=== PATIENT | male | born 1975 | race Caucasian/White ===

== ENCOUNTER 2020-01-15 10:00 | Emergency (ER) | payer OTHER ==
[~2020-01-15] VITALS: Ht 180.3 cm; Wt 102.1 kg
--- NOTE | 2020-01-15 10:04 | NUR ---
DR KELLEY AT BEDSIDE FOR EVAL.
[2020-01-15] MEDS ORDERED: KETOROLAC TROMETHAMINE 15 MG/ML VIAL ONE (10:49)
[2020-01-15] MEDS: KETOROLAC TROMETHAMINE INJ 60 MG/2 ML VIAL IM ONE (10:54)
--- NOTE | 2020-01-15 10:54 | NUR ---
OCTAVIO CHONG AT BEDSIDE FOR SPLINT PLACEMENT.
[2020-01-15 11:10] VITALS: BP 150/71
--- NOTE | 2020-01-15 11:10 | NUR ---
Patient discharged to home in stable condition. Written and verbal after care instructions given. Patient verbalizes understanding of instruction.
== END 2020-01-15 11:10 | disposition home or self-care (01) ==
LOC: ER 10:04
DX: S82.831A Other fracture of upper and lower end of right fibula, initial encounter for closed fracture (principal); S99.811A Other specified injuries of right ankle, initial encounter; X50.1XXA Overexertion from prolonged static or awkward postures, initial encounter; Y93.89 Activity, other specified; Y92.89 Other specified places as the place of occurrence of the external cause; Y99.8 Other external cause status
CPT/HCPCS: 29515; 73610; 96372; 99283; J1885